=== PATIENT | male | born 1990 | race Asian ===

== ENCOUNTER → 2022-05-10 | Day surgery (SDC) | payer BC ==
[2022-05-10 09:45] VITALS: BP 126/76; TEMP 98.8; BMI 29.4
== END | disposition home or self-care (01) ==
LOC: CT 08:58
PROVIDERS: ATTEND Internal Medicine
PROC: 07DR3ZX Extraction of Iliac Bone Marrow, Percutaneous Approach, Diagnostic (ICD-10-PCS; principal; 2022-05-10)
DX: C91.50 Adult T-cell lymphoma/leukemia (HTLV-1-associated) not having achieved remission (principal)
CPT/HCPCS: 20225; 77012; 85097; 88184; 88237; 88305; 88311; 88313; 88341; 88342